=== PATIENT | female | born 1975 | race Caucasian/White ===

== ENCOUNTER 2020-09-03 15:43 | Outpatient (REF) | payer SELFPAY ==
[2020-09-05 07:23] LABS: SARS COV2 IgG Negative (Negative)
== END 2020-09-03 15:44 | disposition home or self-care (01) ==
LOC: HO.LNC 15:43
PROVIDERS: Visit Provider Pathology Anatomic Pathology & Clinical Pathology
DX: Z13.89 Encounter for screening for other disorder (principal)
CPT/HCPCS: 86769